=== PATIENT | male | born 1970 | race Caucasian/White ===

== ENCOUNTER 2018-12-31 16:40 | Emergency (ER) | payer MEDICAID ==
[2018-12-31 16:57] VITALS: BP 133/86
[2018-12-31] MEDS ORDERED: SULFAMETH/TRIMETH DS 800/160 MG TABLET PO STA (17:51)
--- NOTE | 2018-12-31 17:52 | ED Physician Documentation ---
PD HPI SKIN - Stated complaint Stated Complaint: SORES IN LEFT ARMPIT - Chief complaint Chief Complaint: Wound - History obtained from History obtained from: Patient - History of Present Illness Timing - onset: Other (Slowly progressive slightly painful abscess in left axilla for 2 weeks. No history of MRSA. No fevers.) Review of Systems Constitutional: reports: Reviewed and negative Nose: reports: Reviewed and negative Throat: reports: Reviewed and negative PD PAST MEDICAL HISTORY - Past Medical History Past Medical History: No - Past Surgical History Past Surgical History: No - Present Medications Home Medications: Ambulatory Orders Medication Instructions Recorded Confirmed Sulfamethoxazole/Trimethoprim 1 each PO BID #14 tablet 12/31/18 [Sulfamethoxazole-Tmp Ds Tablet] - Allergies Allergies/Adverse Reactions: Allergies Allergy/AdvReac Type Severity Reaction Status Date / Time No Known Drug Allergies Allergy Verified 12/31/18 16:57 - Social History Does the pt smoke?: Yes Smoking Status: Current every day smoker Does the pt drink ETOH?: No Does the pt have substance abuse?: No - Immunizations Immunizations are current?: Yes - POLST Patient has POLST: No PD ED PE NORMAL - Vitals Vital signs reviewed: Yes - General General: Alert and oriented X 3, No acute distress - Derm Derm: Normal color, Warm and dry - Extremities Extremities: No deformity, No tenderness to palpate, Normal ROM s pain, Other (There are 2 pointed abscesses each measuring about 2 cm in diameter in the left axilla with moderate surrounding cellulitis.) - Neuro Neuro: Alert and oriented X 3, Normal speech Results - Vitals Vitals: Vital Signs - 24 hr 12/31/18 16:55 Temperature 36.8 C Heart Rate 65 Respiratory 16 Rate Blood Pressure 133/86 H O2 Saturation 99 Oxygen O2 Source Room air - Labs Labs: Microbiology 12/31/18 17:55 Wound Culture - Preliminary Abscess Procedures - Abscess I&D (location) L axilla Preparation: Alcohol, Lidocaine 1% Incision: Incised with scalpel (x2), Purulent drainage, Loculations broken, Culture obtained. No: Irrigated, Packed (too small) Other: Pt tolerated well, Dressing applied, Antibiotic prescribed Departure - Departure Disposition: 01 Home, Self Care Clinical Impression: Abscess Condition: Good Record reviewed to determine appropriate education?: Yes Instructions: ED Abscess IandD Prescriptions: Sulfamethoxazole/Trimethoprim [Sulfamethoxazole-Tmp Ds Tablet] 1 each PO BID #14 tablet Comments: We are performing a wound culture, the results should be done in 48-72 hours. If antibiotic change is necessary we will call you. Return if worse in the meantime, especially if you develop increased pain, fevers, cannot keep down the medication. Otherwise follow-up with your physician in approximately 2-3 days. Discharge Date/Time: 12/31/18 18:01
== END 2018-12-31 18:01 | disposition home or self-care (01) ==
LOC: ED 16:40
DX: L02.412 Cutaneous abscess of left axilla (principal); L03.112 Cellulitis of left axilla; F17.200 Nicotine dependence, unspecified, uncomplicated
CPT/HCPCS: 10060; 87070; 87181; 87205; 99283; A9270